=== PATIENT | male | born 1980 | race Caucasian/White ===

== ENCOUNTER 2019-11-27 05:25 | Emergency (ER) | payer OTHER, MEDICAID ==
[~2019-11-27] VITALS: Ht 177.8 cm; Wt 81.6 kg
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
--- NOTE | 2019-11-27 05:46 | NUR ---
PT MEDICALLY CLEARED TO POLICE CUSTODY
--- NOTE | 2019-11-27 05:50 | NUR ---
Patient discharged to home in stable conditon. Written and verbal after care instructions given. Patient verbalizes understanding of instructions. AMBULATORY W/ STABLE GAIT ALL BELONGINGS W/ PT ACCOMPANIED BY 2 [employer] OFFICERS
[2019-11-27 05:59] VITALS: BP 127/73
== END 2019-11-27 05:58 | disposition home or self-care (01) ==
LOC: ER 05:28
DX: Z04.89 Encounter for examination and observation for other specified reasons (principal); Z60.2 Problems related to living alone
CPT/HCPCS: A4663